=== PATIENT | female | born 1960 | race Caucasian/White ===

== ENCOUNTER 2017-10-18 | Day surgery (SDC) | END 2017-10-18 23:02 | disposition home or self-care (01) ==

== ENCOUNTER 2020-03-03 09:12 | Day surgery (SDC) | payer OTHER ==
[~2020-03-03] VITALS: Ht 162.6 cm; Wt 58.5 kg
[~2020-03-03 09:12] MED LIST: ASPI81CH PO; BIEST/PROGESTERONE TD; BONE DENSITY C1 EACH PO; CHOL10002 PO; ERGO400; FISH1000 PO; FLONASE ALLERG9.9 M2; LISI20 PO; MULVITMIND PO; PROG100 PO; Prinivil10 MG PO; SOOLANTRA30 GM TP; VITAMIN B-50 C0.4 MG PO; [UNRECOGNIZED DRUG - REMARK]
[2020-03-03] MEDS ORDERED: FLUT.05NI (09:57)
[2020-03-03] MEDS ORDERED: CALCIUM 600 +1 EA11 (09:58)
== END 2020-03-03 13:15 | disposition home or self-care (01) ==
LOC: ORSCSDS 09:12
PROVIDERS: Internal Medicine Gastroenterology
PROC: 0DBN8ZX Excision of Sigmoid Colon, Via Natural or Artificial Opening Endoscopic, Diagnostic (ICD-10-PCS; principal; 2020-03-03 10:45)
PROC: 0DBK8ZX Excision of Ascending Colon, Via Natural or Artificial Opening Endoscopic, Diagnostic (ICD-10-PCS; principal; 2020-03-03 10:45)
PROC: 0DBL8ZX Excision of Transverse Colon, Via Natural or Artificial Opening Endoscopic, Diagnostic (ICD-10-PCS; principal; 2020-03-03 10:45)
DX: Z12.11 Encounter for screening for malignant neoplasm of colon (principal); Z86.010 Personal history of colon polyps; D12.3 Benign neoplasm of transverse colon; D12.2 Benign neoplasm of ascending colon; D12.5 Benign neoplasm of sigmoid colon; Z79.899 Other long term (current) drug therapy
CPT/HCPCS: 88305; J2704; J7120

== ENCOUNTER → 2022-11-29 | Outpatient (CLI) | payer OTHER ==
[~2022-11-29] MED LIST changes: +CALCIUM 600 +1 EA11; +FLUT.05NI
== END | disposition home or self-care (01) ==
LOC: PLD 10:56 → LAB SHORT 10:56 → LAB 10:56
DX: N95.0 Postmenopausal bleeding (principal)
CPT/HCPCS: 88305

== ENCOUNTER → 2023-01-12 | Outpatient (CLI) | payer OTHER ==
[2023-01-12 17:00] LABS: Bun/Creatinine Ratio 11.5 (12.0-20.0); Calcium, Blood 9.9 mg/dL (8.5-10.1); Creatinine, Blood 0.61 mg/dL (0.40-1.00); Potassium, Blood 3.9 mmol/L (3.5-5.5)
[2023-01-12 17:57] LABS: Osmolality, Urine 120 mos/kg (15-1400)
[2023-01-12 19:07] LABS: Sodium, Urine, Random 27 mmol/L (20-110)
== END | disposition home or self-care (01) ==
LOC: LAB 16:50 → LAB SHORT 16:50
PROVIDERS: Physician Assistant
DX: E87.1 Hypo-osmolality and hyponatremia (principal)
CPT/HCPCS: 80048; 83935; 84300